=== PATIENT | female | born 1955 | race Caucasian/White ===

== ENCOUNTER 2017-06-04 08:22 | Emergency (ER) | payer OTHER ==
[~2017-06-04] VITALS: Ht 157.5 cm; Wt 82.2 kg
[~2017-06-04 08:22] MED LIST: AMLO5TAB4 PO; ASPI-664 PO; ATEN-51 PO; ATOR20TA38 PO; GLIP5TAB25 PO; LEVO125T71 PO; OMEP40CA6 PO
[2017-06-04 08:34] VITALS: Ht 157.5 cm; Wt 82.2 kg
[2017-06-04] MEDS ORDERED: HC30CR25 TOP (09:00)
--- NOTE | 2017-06-04 09:13 | ERD ---
ER Documentation Chief Complaint Chief Complaint 15 days felt a bite froma possible "rat" (SAMIRA BURGESS PA-C) HPI 62-year-old female complaining of bite wound to left arm. Patient feels that she had a bat bite her 2 weeks ago. She was in the garage and reached into a dark corner and felt a sudden sharp sensation. Patient is presenting to the ER today for review shot. She is not having any symptoms or irritating pain to the arm. (SAMIRA BURGESS PA-C) ROS All systems reviewed and are negative except as per history of present illness. (SAMIRA BURGESS PA-C) Medications Home Meds Active Scripts Hydrocortisone* Topical (Hydrocortisone* Topical) 2.5%-28.3 Gm Cream..g., 1 APPLIC TOP BID, #1 TUB Prov:SAMIRA BURGESS PA-C 06/04/17 Reported Medications Omeprazole* (Omeprazole*) 40 Mg Capsule.dr, 40 MG PO DAILY, CAP 02/10/15 Atorvastatin Calcium* (Atorvastatin Calcium*) 20 Mg Tablet, 20 MG PO HS, TAB 02/10/15 Aspirin* (Aspirin* EC) 81 Mg Tablet.dr, 81 MG PO DAILY, TAB 02/10/15 Levothyroxine Sodium* (Levoxyl*) 125 Mcg Tablet, 125 MCG PO AC BREAKFAST, TAB 02/10/15 Amlodipine Besylate* (Norvasc*) 5 Mg Tablet, 5 MG PO DAILY, TAB 15 Glipizide* (Glipizide ER*) 5 Mg/Bottle Tab.osm.24, 5 MG PO DAILY, TAB 02/10/15 Atenolol* (Atenolol*) 25 Mg Tablet, 25 MG PO DAILY, TAB 02/10/15 Allergies Allergies: Coded Allergies: No Known Allergy (Unverified , 06/04/17) PMhx/Soc History of Surgery: Yes (OVARIAN TUMOR REMOVAL) Anesthesia Reaction: No Hx Neurological Disorder: No Hx Respiratory Disorders: No Hx Cardiac Disorders: Yes (HYPERLIPEDEDMIA) Hx Psychiatric Problems: No Hx Miscellaneous Medical Probl: No Hx Alcohol Use: No Hx Substance Use: No Hx Tobacco Use: No Smoking Status: Never smoker (SAMIRA BURGESS PA-C) Physical Exam Vitals Vital Signs Date Time Temp Pulse Resp B/P Pulse Ox O2 Delivery O2 Flow Rate FiO2 06/04/17 09:30 158/80 06/04/17 08:34 98.0 74 18 190/89 98 (SANDY HENRIQUEZ DO) Physical Exam GENERAL: The patient is well-appearing, well-nourished, in no acute distress CHEST: Clear to auscultation bilaterally. There are no rales, wheezes or rhonchi. HEART: Regular rate and rhythm. No murmurs, clicks, rubs or gallops. No S3 or S4. EXTREMITIES: Equal pulses bilaterally. There is no peripheral clubbing, cyanosis or edema. No focal swelling or erythema. Full range of motion. Grossly neurovascularly intact. SKIN: small puncture wound to left forearm. No trends. No surrounding erythema. No lymphatic streaking. Compartments soft. (SAMIRA BURGESS PA-C) Procedures/MDM MDM: 8-year-old female complaining of possible rat bite to left arm. Patient did bite 2 weeks ago and has not had any symptoms. I do not feel the patient is at risk for rabies. I explained this to patient and do not feel that rabies injection is indicated at this time. There is no surrounding infection noted to the wound site. I do not feel antibiotics are indicated. The puncture wound is healing without complication. Patient is discharged with strict ER precautions and recommended to follow-up with primary care within 1-2 days for close evaluation. Patient is told if symptoms change or worsen to return to the ER immediately. All questions answered at discharge (SAMIRA BURGESS PA-C) Departure Diagnosis: Primary Impression: Bite wound Condition: Stable Patient Instructions: Animal Bite, General Referrals: [facility] YOU HAVE RECEIVED A MEDICAL SCREENING EXAM AND THE RESULTS INDICATE THAT YOU DO NOT HAVE A CONDITION THAT REQUIRES URGENT TREATMENT IN THE EMERGENCY DEPARTMENT. FURTHER EVALUATION AND TREATMENT OF YOUR CONDITION CAN WAIT UNTIL YOU ARE SEEN IN YOUR DOCTORS OFFICE WITHIN THE NEXT 1-2 DAYS. IT IS YOUR RESPONSIBILITY TO MAKE AN APPOINTMENT FOR FOLOW-UP CARE. IF YOU HAVE A PRIMARY DOCTOR --you should call your primary doctor and schedule an appointment IF YOU DO NOT HAVE A PRIMARY DOCTOR YOU CAN CALL OUR PHYSICIAN REFERRAL HOTLINE AT IF YOU CAN NOT AFFORD TO SEE A PHYSICIAN YOU CAN CHOSE FROM THE FOLLOWING [facility]MER[facility] [address] [facility] [address] [facility] [address] [facility] [address] [facility] [address] [facility]. [facility] [address] Additional Instructions: FOLLOW UP WITH YOUR PRIMARY CARE PHYSICIAN TOMORROW.Return to this facility if you are not improving as expected. SAMIRA BURGESS PA-C Jun 04, 2017 09:12 SANDY HENRIQUEZ DO Jun 05, 2017 16:03
[2017-06-04 09:30] VITALS: BP 158/80
== END 2017-06-04 09:30 | disposition home or self-care (01) ==
LOC: FTE 08:22
DX: S41.152A Open bite of left upper arm, initial encounter (principal); W53.11XA Bitten by rat, initial encounter; Y92.9 Unspecified place or not applicable; Z79.82 Long term (current) use of aspirin; Z79.84 Long term (current) use of oral hypoglycemic drugs
CPT/HCPCS: 99283